=== PATIENT | female | born 1985 | race American Indian/Alaskan Native ===

== ENCOUNTER 2018-04-14 16:37 | Inpatient (IN) ==
[2018-04-14] MEDS ORDERED: DEXTROSE 50% 25 GM/50 ML SYRINGE IV PRN ×2 (19:02→19:29)
[2018-04-14] MEDS ORDERED: GLUCAGON 1 MG VIAL IM PRN (19:02)
[2018-04-14] MEDS ORDERED: ONDANSETRON 4 MG/2 ML VIAL IV PRN (19:03)
[2018-04-14] MEDS ORDERED: MORPHINE 4 MG/1 ML VIAL IV PRN (19:03)
[2018-04-14] MEDS ORDERED: ACETAMINOPHEN 325 MG TABLET PO PRN (19:03)
[2018-04-14] MEDS ORDERED: MAGNESIUM SULF RIDER 4 GM in PREMIX 1 EACH IV PRN (19:29)
[2018-04-14] MEDS ORDERED: MAGNESIUM SULF RIDER 2 GM in PREMIX 1 EACH IV PRN (19:29)
[2018-04-14] MEDS ORDERED: INSULIN REGULAR 100 UNIT/ML IV ONE (19:29)
[2018-04-14 20:00] LABS: Basophils # 0.1 10*3/uL (0.0-0.2); Basophils % 0.4 % (0.0-0.8); Eosinophils % 0.1 % (0.00-10.9); Hematocrit 47.5 VOL% (35.7-47.0); Hemoglobin 15.4 GM/DL (12.0-16.0); Immature Granulocytes % 2.1 %; Immature Granulocytes Absolute 0.34 #; Lymphocytes # 1.9 10*3/uL (1.4-4.0); Lymphocytes % 11.6 % (21.3-54.2); Mean Corpuscular HGB Conc 32.4 GM/DL (32-36); Mean Corpuscular Hemoglobin 33 PG (27-34); Mean Corpuscular Volume 100.6 FL (87-102); Mean Platelet Volume 13.4 FL (9.6-12.0); Monocytes # 1.1 10*3/uL (0.11-0.8); Monocytes % 6.7 % (1.7-12.7); Neutrophils # 12.8 10*3/uL (1.4-7.4); Neutrophils % 79.1 % (38.7-73.9); Platelet Count 255 T/CUMM (130-400); Red Blood Count 4.72 MC/CUMM (3.8-5.5); Red Cell Distribution Width 12.3 % (9.3-17.3); White Blood Count 16.2 T/CUMM (4-12)
[2018-04-14] MEDS ORDERED: SODIUM CHLORIDE 0.9% 1,000 ML IV ONE (20:00)
[2018-04-14 20:05] LABS: Allen Test Positive; Pt O2 Delivery Device Room Air
[2018-04-14 20:11] LABS: ABG Base Excess -27.4 MMOL/L (-2.5-2.5); ABG Oxygen Saturation 98.1 % (95-100); ABG TCO2 2.7 MMOL/L (23-27)
[2018-04-14 20:13] LABS: ABG PCO2 9.9 MM HG (35-48); ABG PH 7.092 (7.35-7.45)
[2018-04-14 20:16] LABS: Apearance,Urine CLEAR (Clear); Bacteria,Urine Occasional /HPF (Few); Bilirubin,Urine Negative (Negative); Blood, Urine Small mg/dL (Negative); Glucose,Urine (UA) >=500 mg/dL (Negative); Hyaline Casts,Urine 1 /LPF (0-3); Ketones,Urine 80 mg/dL (Negative); Mucus,Urine Occasional /LPF (Occasional); Nitrite,Urine Negative (Negative); Protein,Urine 30 MG/DL; Squamous Epithelial Cell,Urine Occasional /HPF (0-10); Urine Color Straw (Yellow); Urine Specific Gravity 1.023 (1.001-1.035); Urine Urobilinogen < 2.0 EU/DL (0.2-1.0); WBC,Urine <1 /HPF (0-6)
[2018-04-14] MEDS: INSULIN REGULAR DRIP 100 ML IV SCH (20:20)
[2018-04-14 20:21] LABS: Calcium 7.6 MG/DL (8.5-10.1); Osmolality,Calculated 291.4 MOS/KG (273-304); Potassium 3.6 MMOL/L (3.5-5.1)
[2018-04-14 20:28] LABS: Alanine Aminotransferase 95 U/L (13-56); Albumin 3.6 G/DL (3.4-5.0); Alkaline Phosphatase 150 U/L (45-117); Aspartate Amino Transferase 85 U/L (0-37); Blood Urea Nitrogen 8 MG/DL (7-18); Calcium 7.5 MG/DL (8.5-10.1); Glucose 366 MG/DL (74-106); Osmolality,Calculated 293.3 MOS/KG (273-304); Potassium 3.6 MMOL/L (3.5-5.1); Sodium 141 MMOL/L (136-145); Total Protein 7.6 G/DL (6.4-8.3); Troponin I < 0.015 NG/ML (0.00-0.045)
[2018-04-14] MEDS: SODIUM CHLORIDE 0.9% 1,000 ML IV SCH (20:38)
[2018-04-14] MEDS ORDERED: SODIUM BICARBONATE 50 MEQ/50 ML SYRINGE IV ONE ×2 (20:57→21:55)
[2018-04-14] MEDS: FLUCONAZOLE INJ 200 MG in PREMIX 1 EACH IV SCH (22:16)
[2018-04-14] MEDS: CLOTRIMAZOLE/BETAMETHASONE CREAM 15 GM TUBE TOP SCH (22:16)
[2018-04-14] MEDS: ENOXAPARIN 40 MG/0.4 ML SYRINGE SUBCUT SCH (22:25)
[2018-04-14] MEDS: POTASSIUM CHLORIDE RIDER 10 MEQ in PREMIX 1 EACH IV PRN ×2 (22:53→23:53)
[2018-04-15 00:49] LABS: Calcium 7.2 MG/DL (8.5-10.1); Osmolality,Calculated 289.8 MOS/KG (273-304); Potassium 3.4 MMOL/L (3.5-5.1)
[2018-04-15] MEDS ORDERED: INSULIN REGULAR 100 UNIT/ML IV ONE (01:05)
[2018-04-15] MEDS: SODIUM CHLORIDE 0.9% 1,000 ML IV SCH (01:25)
[2018-04-15] MEDS ORDERED: DEXTROSE 5% NACL 0.9% 1,000 ML IV SCH (01:30)
[2018-04-15] MEDS: DEXT 5% NACL 0.9% KCL 20 MEQ 20 MEQ/1,000 ML BAG IV SCH ×4 (02:21→23:00)
[2018-04-15 03:26] LABS: Osmolality,Calculated 288.8 MOS/KG (273-304); Potassium 2.7 MMOL/L (3.5-5.1)
[2018-04-15] MEDS: POTASSIUM CHLORIDE RIDER 10 MEQ in PREMIX 1 EACH IV PRN ×5 (03:50→08:16)
[2018-04-15 04:24] LABS: Basophils % 0.2 % (0.0-0.8); Eosinophils % 0.2 % (0.00-10.9); Hematocrit 39.6 VOL% (35.7-47.0); Hemoglobin 13.3 GM/DL (12.0-16.0); Immature Granulocytes Absolute 0.12 #; Lymphocytes % 16.4 % (21.3-54.2); Mean Corpuscular HGB Conc 33.6 GM/DL (32-36); Mean Corpuscular Hemoglobin 32 PG (27-34); Mean Corpuscular Volume 95.7 FL (87-102); Mean Platelet Volume 13.3 FL (9.6-12.0); Monocytes # 0.8 10*3/uL (0.11-0.8); Monocytes % 6.6 % (1.7-12.7); Neutrophils # 9.2 10*3/uL (1.4-7.4); Neutrophils % 75.6 % (38.7-73.9); Platelet Count 190 T/CUMM (130-400); Red Blood Count 4.14 MC/CUMM (3.8-5.5); Red Cell Distribution Width 12.5 % (9.3-17.3); White Blood Count 12.2 T/CUMM (4-12)
[2018-04-15 04:49] LABS: ABG Base Excess -12.4 MMOL/L (-2.5-2.5); ABG HCO3 10.5 MMOL/L (20-26); ABG Oxygen Saturation 98.5 % (95-100); ABG PH 7.357 (7.35-7.45); ABG PO2 124.8 MM HG (80-95); ABG TCO2 11.1 MMOL/L (23-27); Allen Test Positive; Pt O2 Delivery Device Room Air
[2018-04-15 04:54] LABS: Albumin 2.9 G/DL (3.4-5.0); Calcium 7.2 MG/DL (8.5-10.1); Total Protein 6.4 G/DL (6.4-8.3)
[2018-04-15 04:55] LABS: Osmolality,Calculated 289.7 MOS/KG (273-304)
[2018-04-15 05:02] LABS: Risk Ratio 4.66; Thyroid Stimulating Hormone 0.362 uIU/ml (0.358-3.74); VLDL CHOLESTEROL 38.4 MG/DL
[2018-04-15 05:11] LABS: ABG PCO2 19.1 MM HG (35-48)
[2018-04-15 05:12] LABS: Potassium 2.5 MMOL/L (3.5-5.1)
[2018-04-15] MEDS ORDERED: MAGNESIUM SULF RIDER 2 GM in PREMIX 1 EACH IV ONE ×2 (07:51→09:01)
[2018-04-15 08:04] LABS: Calcium 7.4 MG/DL (8.5-10.1); Osmolality,Calculated 278.3 MOS/KG (273-304); Potassium 3.3 MMOL/L (3.5-5.1)
[2018-04-15] MEDS: POTASSIUM CHLORIDE 20 MEQ TABLET PO SCH ×4 (08:49→19:36)
[2018-04-15] MEDS: PANTOPRAZOLE 40 MG TABLET PO SCH (08:49)
[2018-04-15] MEDS: CLOTRIMAZOLE/BETAMETHASONE CREAM 15 GM TUBE TOP SCH ×2 (08:50→20:00)
[2018-04-15] MEDS: INSULIN NPH 100 UNIT/ML SUBCUT SCH ×2 (09:39→16:08)
[2018-04-15] MEDS: INSULIN REGULAR DRIP 100 ML IV SCH ×2 (10:23→22:10)
[2018-04-15 12:02] LABS: Calcium 7.4 MG/DL (8.5-10.1); Osmolality,Calculated 283.5 MOS/KG (273-304); Potassium 3.3 MMOL/L (3.5-5.1)
[2018-04-15 15:35] LABS: Calcium 7.8 MG/DL (8.5-10.1); Osmolality,Calculated 282.4 MOS/KG (273-304); Potassium 3.2 MMOL/L (3.5-5.1)
[2018-04-15 20:00] LABS: Calcium 7.6 MG/DL (8.5-10.1); Osmolality,Calculated 280.7 MOS/KG (273-304); Potassium 3.3 MMOL/L (3.5-5.1)
[2018-04-15] MEDS: FLUCONAZOLE INJ 200 MG in PREMIX 1 EACH IV SCH (20:00)
[2018-04-15] MEDS: ENOXAPARIN 40 MG/0.4 ML SYRINGE SUBCUT SCH (20:00)
[2018-04-16] MEDS: POTASSIUM CHLORIDE 20 MEQ TABLET PO SCH ×5 (00:36→17:42)
[2018-04-16 01:24] LABS: Calcium 7.7 MG/DL (8.5-10.1); Osmolality,Calculated 280.1 MOS/KG (273-304); Potassium 3.2 MMOL/L (3.5-5.1)
[2018-04-16 04:08] LABS: Basophils % 0.2 % (0.0-0.8); Eosinophils % 0.2 % (0.00-10.9); Hematocrit 40.5 VOL% (35.7-47.0); Hemoglobin 13.5 GM/DL (12.0-16.0); Immature Granulocytes % 0.6 %; Immature Granulocytes Absolute 0.06 #; Lymphocytes # 1.4 10*3/uL (1.4-4.0); Lymphocytes % 15.2 % (21.3-54.2); Mean Corpuscular HGB Conc 33.3 GM/DL (32-36); Mean Corpuscular Hemoglobin 32 PG (27-34); Mean Corpuscular Volume 94.6 FL (87-102); Mean Platelet Volume 14.1 FL (9.6-12.0); Monocytes # 0.6 10*3/uL (0.11-0.8); Monocytes % 6.2 % (1.7-12.7); Neutrophils # 7.3 10*3/uL (1.4-7.4); Neutrophils % 77.6 % (38.7-73.9); Platelet Count 171 T/CUMM (130-400); Red Blood Count 4.28 MC/CUMM (3.8-5.5); Red Cell Distribution Width 12.7 % (9.3-17.3); White Blood Count 9.4 T/CUMM (4-12)
[2018-04-16 04:18] LABS: Calcium 7.6 MG/DL (8.5-10.1)
[2018-04-16 04:19] LABS: Osmolality,Calculated 283.1 MOS/KG (273-304); Potassium 2.6 MMOL/L (3.5-5.1)
[2018-04-16] MEDS: DEXT 5% NACL 0.9% KCL 20 MEQ 20 MEQ/1,000 ML BAG IV SCH (05:50)
[2018-04-16] MEDS ORDERED: POTASSIUM CHLORIDE 20 MEQ/15 ML UDCUP PER TUBE PRN (06:44)
[2018-04-16] MEDS ORDERED: MAGNESIUM SULF RIDER 2 GM in PREMIX 1 EACH IV ONE (07:23)
[2018-04-16] MEDS ORDERED: POTASSIUM CHLORIDE 20 MEQ TABLET PO SCH (07:30)
[2018-04-16] MEDS: INSULIN NPH 100 UNIT/ML SUBCUT SCH ×2 (07:51→17:44)
[2018-04-16] MEDS: POTASSIUM CHLORIDE RIDER 10 MEQ in PREMIX 1 EACH IV PRN (10:09)
[2018-04-16] MEDS: PANTOPRAZOLE 40 MG TABLET PO SCH (10:10)
[2018-04-16] MEDS: CLOTRIMAZOLE/BETAMETHASONE CREAM 15 GM TUBE TOP SCH ×2 (10:11→21:16)
[2018-04-16] MEDS ORDERED: SODIUM CHLOR 0.9% KCL 20 MEQ 20 MEQ/1,000 ML BAG IV SCH (10:30)
[2018-04-16] MEDS: INSULIN LISPRO 100 UNIT/ML SUBCUT SCH ×3 (11:23→21:16)
[2018-04-16] MEDS: FLUCONAZOLE INJ 200 MG in PREMIX 1 EACH IV SCH (21:14)
[2018-04-16] MEDS: ENOXAPARIN 40 MG/0.4 ML SYRINGE SUBCUT SCH (21:15)
[2018-04-17 05:31] LABS: Basophils % 0.6 % (0.0-0.8); Eosinophils # 0.1 10*3/uL (0.0-0.87); Eosinophils % 0.8 % (0.00-10.9); Hematocrit 38.3 VOL% (35.7-47.0); Immature Granulocytes % 1.7 %; Immature Granulocytes Absolute 0.11 #; Lymphocytes # 2.3 10*3/uL (1.4-4.0); Lymphocytes % 34.7 % (21.3-54.2); Mean Corpuscular HGB Conc 33.9 GM/DL (32-36); Mean Corpuscular Hemoglobin 32 PG (27-34); Mean Corpuscular Volume 94.6 FL (87-102); Mean Platelet Volume 14.1 FL (9.6-12.0); Monocytes # 0.4 10*3/uL (0.11-0.8); Neutrophils # 3.7 10*3/uL (1.4-7.4); Neutrophils % 56.2 % (38.7-73.9); Platelet Count 160 T/CUMM (130-400); Red Blood Count 4.05 MC/CUMM (3.8-5.5); White Blood Count 6.5 T/CUMM (4-12)
[2018-04-17 05:50] LABS: Albumin 2.6 G/DL (3.4-5.0); Bilirubin,Total 0.5 MG/DL (0.2-1.0); Calcium 7.8 MG/DL (8.5-10.1); Total Protein 6.3 G/DL (6.4-8.3)
[2018-04-17] MEDS: INSULIN NPH 100 UNIT/ML SUBCUT SCH (09:00)
[2018-04-17] MEDS ORDERED: POTASSIUM CHLORIDE 20 MEQ TABLET PO SCH (09:00)
[2018-04-17] MEDS: INSULIN LISPRO 100 UNIT/ML SUBCUT SCH ×2 (09:00→12:31)
[2018-04-17] MEDS: PANTOPRAZOLE 40 MG TABLET PO SCH (09:01)
[2018-04-17] MEDS: CLOTRIMAZOLE/BETAMETHASONE CREAM 15 GM TUBE TOP SCH (09:02)
[2018-04-17] MEDS ORDERED: POTASSIUM CHLORIDE 20 MEQ/15 ML UDCUP PO ONE (09:24)
[2018-04-17] MEDS ORDERED: INSULIN GLARGINE 100 UNIT/ML SUBCUT SCH (09:30)
[2018-04-17 12:30] VITALS: BP 109/65
[2018-04-18] MEDS ORDERED: POTASSIUM CHLORIDE 20 MEQ/15 ML UDCUP PO SCH (09:00)
== END 2018-04-17 13:06 | disposition home or self-care (01) | DRG 420 ==
LOC: N.CC 18:34 → SUATTDRO 18:34 → N.2E 04-16 13:14
PROVIDERS: ADMIT Internal Medicine; ATTEND Family Medicine